=== PATIENT | female | born 1960 | race African-American/Black ===

== ENCOUNTER 2024-01-29 14:02 | Outpatient (CLI) | payer OTHER | END 2024-01-29 14:03 | disposition home or self-care (01) | LOC: CSHMAMMO 14:02 | PROVIDERS: ATTEND Student in an Organized Health Care Education/Training Program | DX: Z12.31 Encounter for screening mammogram for malignant neoplasm of breast (principal) | CPT/HCPCS: 77063; 77067 ==

== ENCOUNTER 2024-02-28 12:23 | Outpatient (CLI) | payer OTHER | END 2024-02-28 12:24 | disposition home or self-care (01) | LOC: CSHLAB 12:23 | PROVIDERS: ATTEND Surgery | DX: Z01.818 Encounter for other preprocedural examination (principal); Z12.11 Encounter for screening for malignant neoplasm of colon | CPT/HCPCS: 93005; 93010 ==

== ENCOUNTER 2024-03-03 06:07 | Day surgery (SDC) | payer OTHER ==
[2024-02-28 12:49] VITALS: BMI 19.6
[2024-03-03] MEDS ORDERED: PROPOFOL 40 ML ONE (07:11)
[2024-03-03] MEDS ORDERED: Lidocaine 1% PF 5 ML VIAL ONE (07:11)
[2024-03-03] MEDS ORDERED: PROPOFOL 20 ML ONE ×2 (07:40→07:58)
== END 2024-03-03 09:40 | disposition home or self-care (01) ==
LOC: CSHSDC 06:07
PROVIDERS: ATTEND Surgery
PROC: 0DJD8ZZ Inspection of Lower Intestinal Tract, Via Natural or Artificial Opening Endoscopic (ICD-10-PCS; principal; 2024-03-03)
DX: K64.1 Second degree hemorrhoids (principal); K63.89 Other specified diseases of intestine; D64.9 Anemia, unspecified; I10 Essential (primary) hypertension; E11.9 Type 2 diabetes mellitus without complications; E78.5 Hyperlipidemia, unspecified
CPT/HCPCS: 36416; J2704